=== PATIENT | female | born 1955 | race African-American/Black ===

== ENCOUNTER 2018-02-17 04:49 | Inpatient (IN) | payer MEDICARE, MEDICAID ==
[~2018-02-17] VITALS: Ht 167.6 cm; Wt 84.8 kg
[2018-02-17] VITALS (8 sets, daily range): BP systolic 134–171; BP diastolic 69–96
[2018-02-17] MEDS ORDERED: ALBUTEROL (0.083%) 2.5MG/3ML NEB HHN STA (04:52)
[2018-02-17] MEDS ORDERED: MAGNESIUM 2 G PREMIX 50 ML IV STA (04:52)
[2018-02-17] MEDS ORDERED: METHYLPREDNISOLONE SOD SUCC 125 MG/2 ML VIAL IV STA (04:52)
[2018-02-17] MEDS ORDERED: IPRATROPIUM BROMIDE (0.02%) 0.5MG/2.5ML NEB HHN STA (04:52)
[2018-02-17 08:24] LABS: HEMATOCRIT. 48.9 % (36.0-48.0); HEMOGLOBIN. 15.9 g/dL (12.0-16.0); MEAN CORPUSCULAR HEMOGLOBIN 28.7 pg (28.0-32.0); MEAN CORPUSCULAR VOLUME 88.3 fL (81.0-99.0); MEAN PLATELET VOLUME 8.5 fl (7.4-10.4); PLATELET 255 x1000/uL (130-400); RED BLOOD CELL COUNT 5.54 mill/uL (4.2-5.4); RED CELL DISTRIBUTION WIDTH 15.4 % (11.6-14.6)
[2018-02-17 08:31] LABS: CHLORIDE 104 mEq/L (98-107)
[2018-02-17] MEDS ORDERED: CLONIDINE 0.1MG TABLET PO PRN (08:45)
[2018-02-17] MEDS ORDERED: ONDANSETRON HCL 4MG/2ML INJ IV PRN (08:45)
[2018-02-17] MEDS ORDERED: ACETAMINOPHEN 325MG TABLET PO PRN (08:45)
[2018-02-17] MEDS ORDERED: DOCUSATE SODIUM 100MG CAPSULE PO PRN (08:45)
[2018-02-17 08:47] LABS: PLATELET ESTIMATE NORMAL
[2018-02-17] MEDS ORDERED: METHYLPREDNISOLONE SOD SUCC 125 MG/2 ML VIAL IV SCH (09:30)
[2018-02-17] MEDS ORDERED: AZITHROMYCIN 500 MG in DEXT 5% WATER 250 ML IV SCH (11:00)
[2018-02-17] MEDS: HYDROCODONE/ACETAMINOPHEN 5/325MG TABLET PO PRN ×2 (14:38→20:38)
[2018-02-17] MEDS ORDERED: ASPIRIN/ACETAMINOPHEN/CAFFEINE 250/250/65MG TABLET PO PRN (15:00)
[2018-02-17] MEDS: IPRATROPIUM/ALBUTEROL 0.5-3(2.5)MG/3ML NEB HHN SCH ×2 (15:47→21:55)
[2018-02-17] MEDS: METHYLPREDNISOLONE SOD SUCC 40 MG/ML VIAL IV SCH ×2 (16:28→23:52)
[2018-02-17] MEDS: MONTELUKAST SODIUM 10MG TABLET PO SCH (16:28)
[2018-02-17] MEDS: LORATADINE 10MG TABLET PO SCH (16:28)
[2018-02-17 16:34] LABS: BG BASE EXCESS 1.4 mmol/L (-2.0-2.0); BG BILEVEL POS AIRWAY PRESSURE ST=15/5; BG CARBOXYHEMOGLOBIN 0.8 % (0.5-1.5); BG DEOXYHEMOGLOBIN 3.3 % (0.0-5.0); BG FRACTION INSPIRED OXYGEN 40; BG HCO3 ACT 28.9 mmol/L (22.0-26.0); BG METHEMOGLOBIN 0.4 % (0.0-1.5); BG OXYGEN SATURATION 96.7 % (92.0-98.5); BG OXYHEMOGLOBIN 95.5 % (94.0-97.0); BG PCO2 56.8 mmHg (35.0-45.0); BG PH 7.324 (7.350-7.450); BG PO2 90.3 mmHg (75.0-100.0); BG PRESSURE SUPPORT 10; BG SAMPLE SITE LEFT BRACHIAL; BG TOTAL HEMOGLOBIN 15.6 g/dL (12.0-18.0); BG VENT MODE MASK - BIPAP; BG VENT RATE 20 set
[2018-02-17] MEDS: FLUTICASONE PROPIONATE 50MCG/SPRAY BOTTLE BOTHNSTRLS SCH (20:37)
[2018-02-17] MEDS: FAMOTIDINE 20MG/2ML VIAL IV SCH (20:39)
[2018-02-17] MEDS: GUAIFENESIN 600MG ER TABLET PO SCH (20:39)
[2018-02-18] VITALS (17 sets, daily range): BP systolic 119–167; BP diastolic 24–107
[2018-02-18] MEDS: IPRATROPIUM/ALBUTEROL 0.5-3(2.5)MG/3ML NEB HHN SCH ×6 (02:18→20:07)
[2018-02-18] MEDS: GUAIFENESIN 200MG/10ML SUGAR FREE UDC PO PRN ×2 (05:02→10:16)
[2018-02-18] MEDS: HYDROCODONE/ACETAMINOPHEN 5/325MG TABLET PO PRN ×2 (05:02→21:03)
[2018-02-18 06:38] LABS: HEMATOCRIT. 44.9 % (36.0-48.0); HEMOGLOBIN. 14.6 g/dL (12.0-16.0); MEAN CORPUSCULAR HEMOGLOBIN 28.9 pg (28.0-32.0); MEAN CORPUSCULAR VOLUME 88.7 fL (81.0-99.0); MEAN PLATELET VOLUME 8.5 fl (7.4-10.4); PLATELET 247 x1000/uL (130-400); RED BLOOD CELL COUNT 5.06 mill/uL (4.2-5.4); RED CELL DISTRIBUTION WIDTH 15.3 % (11.6-14.6)
[2018-02-18 06:50] LABS: CHLORIDE 103 mEq/L (98-107)
[2018-02-18] MEDS: METHYLPREDNISOLONE SOD SUCC 40 MG/ML VIAL IV SCH ×3 (06:53→22:19)
[2018-02-18 07:38] LABS: PLATELET ESTIMATE NORMAL
[2018-02-18] MEDS: FLUTICASONE PROPIONATE 50MCG/SPRAY BOTTLE BOTHNSTRLS SCH ×2 (08:30→20:59)
[2018-02-18] MEDS: LORATADINE 10MG TABLET PO SCH (08:31)
[2018-02-18] MEDS: AZITHROMYCIN 250 MG TABLET PO SCH (08:31)
[2018-02-18] MEDS: GUAIFENESIN 600MG ER TABLET PO SCH ×2 (08:31→20:58)
[2018-02-18] MEDS: FAMOTIDINE 20MG/2ML VIAL IV SCH ×2 (08:34→20:58)
[2018-02-18 10:42] LABS: CLARITY URINE CLEAR (CLEAR); COLOR URINE YELLOW (YELLOW); KETONES URINE NEGATIVE (NEGATIVE); LEUKOCYTE ESTERASE URINE NEGATIVE (NEGATIVE); NITRITE URINE NEGATIVE (NEGATIVE); OCCULT BLOOD URINE NEGATIVE (NEGATIVE); PROTEIN URINE NEGATIVE (NEGATIVE); SPECIFIC GRAVITY URINE 1.024 (1.005-1.030); UROBILINOGEN URINE 0.2 E.U./dL (0.2-1.0)
[2018-02-18 11:25] LABS: *AMPHETAMINES SCREEN URINE NEGATIVE (NEGATIVE); *BARBITURATES SCREEN URINE NEGATIVE (NEGATIVE); *BENZODIAZEPINES SCREEN URINE NEGATIVE (NEGATIVE); *COCAINE SCREEN URINE PRESUMTIVE POSITIVE (NEGATIVE); METHADONE URINE SCREEN NEGATIVE (NEGATIVE)
[2018-02-18 11:26] LABS: CANNABINOID URINE SCREEN NEGATIVE (NEGATIVE); OPIATES URINE SCREEN PRESUMTIVE POSITIVE (NEGATIVE); PHENCYCLIDINE URINE SCREEN NEGATIVE (NEGATIVE)
[2018-02-18] MEDS: MONTELUKAST SODIUM 10MG TABLET PO SCH (16:26)
[2018-02-19] VITALS (19 sets, daily range): BP systolic 92–154; BP diastolic 27–104
[2018-02-19] MEDS: GUAIFENESIN 200MG/10ML SUGAR FREE UDC PO PRN ×2 (00:46→14:26)
[2018-02-19] MEDS: IPRATROPIUM/ALBUTEROL 0.5-3(2.5)MG/3ML NEB HHN SCH ×6 (04:41→21:31)
[2018-02-19 07:20] LABS: HEMATOCRIT. 46.4 % (36.0-48.0); HEMOGLOBIN. 14.9 g/dL (12.0-16.0); MEAN CORPUSCULAR HEMOGLOBIN 28.6 pg (28.0-32.0); MEAN CORPUSCULAR VOLUME 88.9 fL (81.0-99.0); MEAN PLATELET VOLUME 8.4 fl (7.4-10.4); PLATELET 256 x1000/uL (130-400); RED BLOOD CELL COUNT 5.21 mill/uL (4.2-5.4); RED CELL DISTRIBUTION WIDTH 15.5 % (11.6-14.6)
[2018-02-19 07:24] LABS: CHLORIDE 100 mEq/L (98-107)
[2018-02-19] MEDS: METHYLPREDNISOLONE SOD SUCC 40 MG/ML VIAL IV SCH ×3 (07:34→22:36)
[2018-02-19] MEDS: IPRATROPIUM/ALBUTEROL 0.5-3(2.5)MG/3ML NEB INH PRN ×2 (07:34→15:56)
[2018-02-19] MEDS: AZITHROMYCIN 250 MG TABLET PO SCH (08:54)
[2018-02-19] MEDS: FAMOTIDINE 20MG/2ML VIAL IV SCH ×2 (08:54→20:28)
[2018-02-19] MEDS: FLUTICASONE PROPIONATE 50MCG/SPRAY BOTTLE BOTHNSTRLS SCH ×2 (08:54→20:29)
[2018-02-19] MEDS: LORATADINE 10MG TABLET PO SCH (08:54)
[2018-02-19] MEDS: AMLODIPINE 5MG TABLET PO SCH (08:54)
[2018-02-19] MEDS: GUAIFENESIN 600MG ER TABLET PO SCH ×2 (08:54→20:29)
[2018-02-19] MEDS: HYDROCODONE/ACETAMINOPHEN 5/325MG TABLET PO PRN ×2 (09:09→16:34)
[2018-02-19] MEDS ORDERED: TERBUTALINE SULFATE 1MG/ML VIAL SUBCUT SCH (09:45)
[2018-02-19 10:29] LABS: PLATELET ESTIMATE NORMAL
[2018-02-19] MEDS: MONTELUKAST SODIUM 10MG TABLET PO SCH (16:31)
[2018-02-20] VITALS (15 sets, daily range): BP systolic 114–168; BP diastolic 64–97
[2018-02-20] MEDS: IPRATROPIUM/ALBUTEROL 0.5-3(2.5)MG/3ML NEB HHN SCH ×5 (01:22→21:19)
[2018-02-20] MEDS: GUAIFENESIN 200MG/10ML SUGAR FREE UDC PO PRN ×3 (05:35→21:39)
[2018-02-20] MEDS: METHYLPREDNISOLONE SOD SUCC 40 MG/ML VIAL IV SCH ×3 (06:06→21:39)
[2018-02-20] MEDS: HYDROCODONE/ACETAMINOPHEN 5/325MG TABLET PO PRN ×3 (06:07→22:22)
[2018-02-20 06:40] LABS: HEMATOCRIT. 47.2 % (36.0-48.0); HEMOGLOBIN. 15.4 g/dL (12.0-16.0); MEAN CORPUSCULAR HEMOGLOBIN 29.1 pg (28.0-32.0); MEAN CORPUSCULAR VOLUME 89.1 fL (81.0-99.0); MEAN PLATELET VOLUME 8.9 fl (7.4-10.4); PLATELET 263 x1000/uL (130-400); RED CELL DISTRIBUTION WIDTH 15.7 % (11.6-14.6)
[2018-02-20 07:14] LABS: CHLORIDE 98 mEq/L (98-107)
[2018-02-20 07:58] LABS: PLATELET ESTIMATE NORMAL
[2018-02-20] MEDS: FLUTICASONE PROPIONATE 50MCG/SPRAY BOTTLE BOTHNSTRLS SCH ×2 (09:06→20:46)
[2018-02-20] MEDS: FAMOTIDINE 20MG/2ML VIAL IV SCH ×2 (09:06→20:46)
[2018-02-20] MEDS: AMLODIPINE 5MG TABLET PO SCH (09:07)
[2018-02-20] MEDS: GUAIFENESIN 600MG ER TABLET PO SCH ×2 (09:07→20:46)
[2018-02-20] MEDS: AZITHROMYCIN 250 MG TABLET PO SCH (09:07)
[2018-02-20] MEDS: LORATADINE 10MG TABLET PO SCH (09:07)
[2018-02-20] MEDS: ENOXAPARIN 30MG/0.3ML SYR SUBCUT SCH ×2 (10:15→20:47)
[2018-02-20] MEDS: BENZONATATE 100MG CAPSULE PO PRN ×2 (15:01→22:51)
[2018-02-20] MEDS: MONTELUKAST SODIUM 10MG TABLET PO SCH (16:34)
[2018-02-21] VITALS (13 sets, daily range): BP systolic 119–167; BP diastolic 63–91
[2018-02-21] MEDS: IPRATROPIUM/ALBUTEROL 0.5-3(2.5)MG/3ML NEB HHN SCH ×6 (00:51→20:14)
[2018-02-21] MEDS: METHYLPREDNISOLONE SOD SUCC 40 MG/ML VIAL IV SCH ×3 (05:16→21:10)
[2018-02-21] MEDS: GUAIFENESIN 200MG/10ML SUGAR FREE UDC PO PRN ×2 (08:54→21:11)
[2018-02-21] MEDS: AZITHROMYCIN 250 MG TABLET PO SCH (08:54)
[2018-02-21] MEDS: AMLODIPINE 5MG TABLET PO SCH (08:54)
[2018-02-21] MEDS: GUAIFENESIN 600MG ER TABLET PO SCH ×2 (08:54→21:10)
[2018-02-21] MEDS: LORATADINE 10MG TABLET PO SCH (08:54)
[2018-02-21] MEDS: FAMOTIDINE 20MG/2ML VIAL IV SCH ×2 (08:54→21:10)
[2018-02-21] MEDS: ENOXAPARIN 30MG/0.3ML SYR SUBCUT SCH ×2 (08:55→21:11)
[2018-02-21] MEDS: BENZONATATE 100MG CAPSULE PO PRN ×2 (10:13→21:10)
[2018-02-21] MEDS: NICOTINE 14MG PATCH TD SCH (10:13)
[2018-02-21] MEDS: HYDROCODONE/ACETAMINOPHEN 5/325MG TABLET PO PRN ×2 (15:16→21:10)
[2018-02-21] MEDS: MONTELUKAST SODIUM 10MG TABLET PO SCH (16:55)
[2018-02-22] VITALS (11 sets, daily range): BP systolic 115–162; BP diastolic 49–94
[2018-02-22] MEDS: GUAIFENESIN 200MG/10ML SUGAR FREE UDC PO PRN ×4 (00:36→21:03)
[2018-02-22] MEDS: IPRATROPIUM/ALBUTEROL 0.5-3(2.5)MG/3ML NEB HHN SCH ×6 (00:42→20:33)
[2018-02-22] MEDS: METHYLPREDNISOLONE SOD SUCC 40 MG/ML VIAL IV SCH ×3 (05:01→21:03)
[2018-02-22] MEDS: BENZONATATE 100MG CAPSULE PO PRN ×2 (05:01→21:26)
[2018-02-22] MEDS: HYDROCODONE/ACETAMINOPHEN 5/325MG TABLET PO PRN ×3 (05:02→21:05)
[2018-02-22 07:02] LABS: BASOPHILS % 0.1 % (0.0-2.0); HEMATOCRIT. 49.7 % (36.0-48.0); LYMPHOCYTES % 8.2 % (20.0-50.0); MEAN CORPUSCULAR HEMOGLOBIN 28.4 pg (28.0-32.0); MEAN CORPUSCULAR VOLUME 88.1 fL (81.0-99.0); MEAN PLATELET VOLUME 8.8 fl (7.4-10.4); MONOCYTES % 11.5 % (2.0-8.0); NEUTROPHILS % 80.2 % (40.0-76.0); PLATELET 267 x1000/uL (130-400); RED BLOOD CELL COUNT 5.64 mill/uL (4.2-5.4); RED CELL DISTRIBUTION WIDTH 15.7 % (11.6-14.6)
[2018-02-22 07:06] LABS: CHLORIDE 97 mEq/L (98-107)
[2018-02-22] MEDS: AZITHROMYCIN 250 MG TABLET PO SCH (08:37)
[2018-02-22] MEDS: GUAIFENESIN 600MG ER TABLET PO SCH ×2 (08:37→20:38)
[2018-02-22] MEDS: LORATADINE 10MG TABLET PO SCH (08:37)
[2018-02-22] MEDS: FAMOTIDINE 20MG/2ML VIAL IV SCH ×2 (08:37→20:38)
[2018-02-22] MEDS: NICOTINE 14MG PATCH TD SCH (08:37)
[2018-02-22] MEDS: ENOXAPARIN 30MG/0.3ML SYR SUBCUT SCH (08:38)
[2018-02-22] MEDS: AMLODIPINE 5MG TABLET PO SCH (08:38)
[2018-02-22] MEDS: MONTELUKAST SODIUM 10MG TABLET PO SCH (18:33)
[2018-02-22] MEDS: LIDOCAINE 5% PATCH TOP SCH (18:34)
[2018-02-23] VITALS (15 sets, daily range): BP systolic 121–157; BP diastolic 53–100
[2018-02-23] MEDS: GUAIFENESIN 200MG/10ML SUGAR FREE UDC PO PRN ×2 (00:21→03:55)
[2018-02-23] MEDS: IPRATROPIUM/ALBUTEROL 0.5-3(2.5)MG/3ML NEB HHN SCH ×6 (00:21→20:30)
[2018-02-23] MEDS: HYDROCODONE/ACETAMINOPHEN 5/325MG TABLET PO PRN ×4 (00:25→20:38)
[2018-02-23] MEDS: METHYLPREDNISOLONE SOD SUCC 40 MG/ML VIAL IV SCH (06:00)
[2018-02-23 06:51] LABS: HEMATOCRIT. 48.7 % (36.0-48.0); HEMOGLOBIN. 15.9 g/dL (12.0-16.0); MEAN CORPUSCULAR HEMOGLOBIN 28.8 pg (28.0-32.0); MEAN CORPUSCULAR VOLUME 88.2 fL (81.0-99.0); MEAN PLATELET VOLUME 8.4 fl (7.4-10.4); PLATELET 271 x1000/uL (130-400); RED BLOOD CELL COUNT 5.53 mill/uL (4.2-5.4); RED CELL DISTRIBUTION WIDTH 15.6 % (11.6-14.6)
[2018-02-23 07:33] LABS: CHLORIDE 95 mEq/L (98-107)
[2018-02-23] MEDS: AZITHROMYCIN 250 MG TABLET PO SCH (08:39)
[2018-02-23] MEDS: LORATADINE 10MG TABLET PO SCH (08:39)
[2018-02-23] MEDS: GUAIFENESIN 600MG ER TABLET PO SCH ×2 (08:39→20:38)
[2018-02-23] MEDS: AMLODIPINE 5MG TABLET PO SCH (08:39)
[2018-02-23] MEDS: BENZONATATE 100MG CAPSULE PO PRN ×2 (08:39→20:37)
[2018-02-23] MEDS: ENOXAPARIN 40MG/0.4ML SYR SUBCUT SCH (08:40)
[2018-02-23] MEDS: FAMOTIDINE 20MG/2ML VIAL IV SCH ×2 (08:40→20:38)
[2018-02-23] MEDS: NICOTINE 14MG PATCH TD SCH (08:41)
[2018-02-23] MEDS: LIDOCAINE 5% PATCH TOP SCH (08:44)
[2018-02-23 10:52] LABS: ATYPICAL LYMPHOCYTES 2; PLATELET ESTIMATE NORMAL
[2018-02-23] MEDS: BUDESONIDE 0.5MG/2ML NEB HHN SCH (12:35)
[2018-02-23] MEDS: PREDNISONE 20MG TABLET PO SCH (16:56)
[2018-02-24] VITALS (7 sets, daily range): BP systolic 110–128; BP diastolic 66–107
[2018-02-24] MEDS: BUDESONIDE 0.5MG/2ML NEB HHN SCH ×2 (00:26→08:57)
[2018-02-24] MEDS: IPRATROPIUM/ALBUTEROL 0.5-3(2.5)MG/3ML NEB HHN SCH ×4 (00:26→13:30)
[2018-02-24 06:39] LABS: BASOPHILS % 0.1 % (0.0-2.0); CHLORIDE 99 mEq/L (98-107); HEMATOCRIT. 48.2 % (36.0-48.0); HEMOGLOBIN. 15.8 g/dL (12.0-16.0); LYMPHOCYTES % 11.4 % (20.0-50.0); MEAN CORPUSCULAR HEMOGLOBIN 28.8 pg (28.0-32.0); MEAN CORPUSCULAR VOLUME 88.2 fL (81.0-99.0); MEAN PLATELET VOLUME 8.4 fl (7.4-10.4); MONOCYTES % 10.7 % (2.0-8.0); NEUTROPHILS % 77.8 % (40.0-76.0); PLATELET 300 x1000/uL (130-400); RED BLOOD CELL COUNT 5.47 mill/uL (4.2-5.4); RED CELL DISTRIBUTION WIDTH 15.2 % (11.6-14.6)
[2018-02-24] MEDS: GUAIFENESIN 200MG/10ML SUGAR FREE UDC PO PRN ×2 (06:44→07:21)
[2018-02-24] MEDS: BENZONATATE 100MG CAPSULE PO PRN (06:44)
[2018-02-24] MEDS: HYDROCODONE/ACETAMINOPHEN 5/325MG TABLET PO PRN (06:46)
[2018-02-24] MEDS: PREDNISONE 20MG TABLET PO SCH (07:24)
[2018-02-24] MEDS: NICOTINE 14MG PATCH TD SCH (08:24)
[2018-02-24] MEDS: ENOXAPARIN 40MG/0.4ML SYR SUBCUT SCH (08:24)
[2018-02-24] MEDS: LIDOCAINE 5% PATCH TOP SCH (08:24)
[2018-02-24] MEDS: AZITHROMYCIN 250 MG TABLET PO SCH (08:25)
[2018-02-24] MEDS: FAMOTIDINE 20MG/2ML VIAL IV SCH (08:25)
[2018-02-24] MEDS: LORATADINE 10MG TABLET PO SCH (08:25)
[2018-02-24] MEDS: GUAIFENESIN 600MG ER TABLET PO SCH (08:25)
[2018-02-24] MEDS: AMLODIPINE 5MG TABLET PO SCH (08:25)
[2018-02-24] MEDS ORDERED: DEXTL PO (11:37)
[2018-02-24] MEDS ORDERED: HYDR-4001 PO (11:37)
[2018-02-24] MEDS ORDERED: BENZ100C86 PO (11:37)
[2018-02-24] MEDS ORDERED: ATOR-2 MT (12:17)
[2018-02-24] MEDS ORDERED: HYDR25TA PO (12:17)
[2018-02-24] MEDS ORDERED: AMLO10TA80 MT (12:17)
[2018-02-24] MEDS ORDERED: AMLO10TA4 PO (12:17)
[2018-02-24] MEDS ORDERED: GABA-531 MT ×2 (12:17→12:39)
[2018-02-24] MEDS ORDERED: MONT10TA24 MT (12:17)
[2018-02-24] MEDS ORDERED: HYDR-4135 PO (12:17)
[2018-02-24] MEDS ORDERED: CYCL10TA7 PO (12:17)
[2018-02-24] MEDS ORDERED: P20 MT ×2 (12:17→12:39)
[2018-02-24] MEDS ORDERED: HYDR-4009 PO ×2 (12:22→12:39)
[2018-02-24] MEDS ORDERED: PULM50 HHN (12:39)
== END 2018-02-24 14:45 | disposition home or self-care (01) | DRG 189 ==
LOC: ER 04:57 → 3WST 05:46 → EDBEDREQ 05:47 → ENRESERV 07:08
PROVIDERS: ADMIT Family Medicine Adult Medicine; ATTEND Family Medicine Adult Medicine
PROC: 5A09457 Assistance with Respiratory Ventilation, 24-96 Consecutive Hours, Continuous Positive Airway Pressure (ICD-10-PCS; principal; 2018-02-18)
DX: J96.01 Acute respiratory failure with hypoxia (principal); J44.1 Chronic obstructive pulmonary disease with (acute) exacerbation; J44.0 Chronic obstructive pulmonary disease with (acute) lower respiratory infection; E87.2 Acidosis; R65.10 Systemic inflammatory response syndrome (SIRS) of non-infectious origin without acute organ dysfunction; J20.9 Acute bronchitis, unspecified; F12.10 Cannabis abuse, uncomplicated; F14.10 Cocaine abuse, uncomplicated; F17.210 Nicotine dependence, cigarettes, uncomplicated; G43.909 Migraine, unspecified, not intractable, without status migrainosus; I11.9 Hypertensive heart disease without heart failure; Z96.651 Presence of right artificial knee joint; Z99.81 Dependence on supplemental oxygen; Z90.710 Acquired absence of both cervix and uterus
CPT/HCPCS: 36415; 36600; 71045; 80048; 80305; 82375; 82805; 83880; 84484; 87804; 92950; 93005; 93306; 94640; 94660; 94667; 96365; 97162; 99291; J0456; J1650; J2920; J2930; J3105; J3475; J3490; J7050; J7060; J7512; J7611; J7620; J7626